=== PATIENT | female | born 1970 | race Asian ===

== ENCOUNTER 2018-08-04 15:38 | Outpatient (CLI) | payer OTHER | END 2018-08-04 15:39 | disposition home or self-care (01) | LOC: BICMAMMO 15:38 | PROVIDERS: ATTEND Obstetrics & Gynecology | DX: Z12.31 Encounter for screening mammogram for malignant neoplasm of breast (principal); N64.89 Other specified disorders of breast | CPT/HCPCS: 77063; 77067 ==

== ENCOUNTER 2018-09-04 12:51 | Outpatient (CLI) | payer OTHER | END 2018-09-04 12:52 | disposition home or self-care (01) | LOC: BICMAMMO 12:51 | PROVIDERS: ATTEND Family Medicine | DX: R92.2 Inconclusive mammogram (principal) | CPT/HCPCS: G0279 ==

== ENCOUNTER 2025-05-10 08:38 | Outpatient (CLI) | payer BC | END 2025-05-10 08:39 | disposition home or self-care (01) | LOC: BICMAMMO 08:38 | PROVIDERS: ATTEND Family Medicine | DX: Z12.31 Encounter for screening mammogram for malignant neoplasm of breast (principal); Z80.3 Family history of malignant neoplasm of breast; Z91.89 Other specified personal risk factors, not elsewhere classified | CPT/HCPCS: 77063; 77067 ==